=== PATIENT | male | born 1975 | race Caucasian/White ===

== ENCOUNTER 2023-06-25 01:12 | Emergency (ER) | payer OTHER ==
[~2023-06-25] VITALS: Ht 165.1 cm; Wt 63.5 kg
[2023-06-25 01:32] VITALS: TEMP 98.2
[2023-06-25] MEDS: TDAP [DIPH/PERTUSSIS/TET] 0.5 ML VIAL IM ONE (02:00)
[2023-06-25 02:49] VITALS: BP 113/70; O2SAT 99
[2023-06-25] MEDS ORDERED: TDAP [DIPH/PERTUSSIS/TET] 0.5 ML VIAL IM ONE (02:58)
== END 2023-06-25 03:08 | disposition home or self-care (01) ==
LOC: ER 01:19
DX: S01.312A Laceration without foreign body of left ear, initial encounter (principal); W20.8XXA Other cause of strike by thrown, projected or falling object, initial encounter; Y93.89 Activity, other specified; Y92.89 Other specified places as the place of occurrence of the external cause; Y99.8 Other external cause status
CPT/HCPCS: 90715